=== PATIENT | female | born 1925 | race Caucasian/White ===

== ENCOUNTER 2017-05-28 08:58 | Inpatient (IN) | payer OTHER ==
[~2017-05-28] VITALS: Ht 157.5 cm; Wt 43.3 kg
[2017-05-28] VITALS (16 sets, daily range): BP systolic 111–158; BP diastolic 52–87
[2017-05-28] MEDS ORDERED: SODIUM CHLORIDE 0.9% 1,000 ML IV ONE (09:43)
[2017-05-28] MEDS ORDERED: FAMOTIDINE 20 MG/2 ML ONE (09:49)
[2017-05-28] MEDS ORDERED: ONDANSETRON 2MG/ML, 2ML ONE (09:49)
[2017-05-28] MEDS ORDERED: SODIUM CHLORIDE 0.9% 1,000ML IVBOLUS ONE (10:00)
[2017-05-28] MEDS ORDERED: ONDANSETRON 2MG/ML, 2ML IVPush ONE (10:00)
[2017-05-28] MEDS ORDERED: FAMOTIDINE 20 MG/2 ML IVP ONE (10:00)
[2017-05-28 11:33] LABS: ASPARTATE AMINO TRANSFERASE 16 U/L (15-37); BLOOD UREA NITROGEN 37 mg/dL (7-18)
[2017-05-28] MEDS ORDERED: ASPI-515 PO (11:39)
[2017-05-28] MEDS ORDERED: QUET25TA5 PO ×2 (11:39)
[2017-05-28] MEDS ORDERED: QUET50TA5 PO (11:39)
[2017-05-28] MEDS ORDERED: LABETALOL 5MG/ML, 20ML IVPush PRN (15:00)
[2017-05-28] MEDS ORDERED: PROMETHAZINE 25 MG/ML, 1ML IM PRN (15:00)
[2017-05-28] MEDS ORDERED: morphine SULFATE 10 MG/ML, 1ML IVPush PRN (15:00)
[2017-05-28] MEDS ORDERED: ONDANSETRON 2MG/ML, 2ML IVPush PRN (15:00)
[2017-05-28] MEDS ORDERED: GUAIFENESIN/DM 200-20MG, 10ML UDC PO PRN (15:00)
[2017-05-28] MEDS ORDERED: ONDANSETRON ODT 4 MG PO PRN (15:00)
[2017-05-28] MEDS ORDERED: POLYETHYLENE GLYCOL 17 GM PACKET PO PRN (15:00)
[2017-05-28] MEDS ORDERED: HYDROcodone/APAP 5/325 TABLET PO PRN (15:00)
[2017-05-28] MEDS ORDERED: IMMUNE GLOBULIN IV ONE (17:30)
[2017-05-28] MEDS ORDERED: PANTOPRAZOLE 80 MG in SODIUM CHLORIDE 0.9% 50 ML IV ONE (17:30)
[2017-05-28 18:04] LABS: FIBRINOGEN 279 mg/dL (200-340)
[2017-05-28] MEDS ORDERED: OMNIPAQUE 350 MG/ML, 100ML BOTTLE ONE (19:42)
[2017-05-28] MEDS: SODIUM CHLORIDE 0.9% 1,000 ML IV SCH (20:32)
[2017-05-29 00:17] VITALS: BP 145/83
[2017-05-29 00:38] VITALS: BP 145/93
[2017-05-29 01:29] VITALS: BP 160/85
[2017-05-29] MEDS: PANTOPRAZOLE 80 MG in SODIUM CHLORIDE 0.9% 100 ML IV SCH ×2 (03:14→14:02)
[2017-05-29] MEDS: CEFTRIAXONE PMX 1GM/50ML 50 ML IV SCH (03:15)
[2017-05-29 06:14] LABS: ASPARTATE AMINO TRANSFERASE 31 U/L (15-37); BLOOD UREA NITROGEN 22 mg/dL (7-18)
[2017-05-29 06:51] VITALS: BP 127/69
[2017-05-29] MEDS: DEXAMETHASONE 4 MG TABLET PO SCH (09:00)
[2017-05-29] MEDS: SENNA/DOCUSATE TABLET PO SCH (09:19)
[2017-05-29] MEDS: SODIUM CHLORIDE 0.9% 1,000 ML IV SCH (14:03)
[2017-05-29 14:57] VITALS: BP 139/70
[2017-05-29] MEDS ORDERED: GLUCAGON 1 MG IM PRN (18:30)
[2017-05-29] MEDS ORDERED: DEXTROSE 50%, 50ML SYRINGE IVPush PRN (18:30)
[2017-05-29] MEDS ORDERED: DEXTROSE 4 GM TAB.CHEW PO PRN (18:30)
[2017-05-29 19:25] VITALS: BP 139/72
[2017-05-30 00:31] VITALS: BP 165/83
[2017-05-30] MEDS: SODIUM CHLORIDE FLUSH 10ML SYR IVF SCH ×3 (01:01→21:12)
[2017-05-30] MEDS: SODIUM CHLORIDE 0.9% 1,000 ML IV SCH ×2 (01:01→12:53)
[2017-05-30] MEDS: PANTOPRAZOLE 80 MG in SODIUM CHLORIDE 0.9% 100 ML IV SCH ×2 (03:43→13:57)
[2017-05-30] MEDS: CEFTRIAXONE PMX 1GM/50ML 50 ML IV SCH (03:43)
[2017-05-30 05:22] LABS: BLOOD UREA NITROGEN 20 mg/dL (7-18)
[2017-05-30 05:27] LABS: ASPARTATE AMINO TRANSFERASE 20 U/L (15-37)
[2017-05-30 06:53] VITALS: BP 139/70
[2017-05-30] MEDS: DEXAMETHASONE 4 MG TABLET PO SCH (08:42)
[2017-05-30] MEDS: SENNA/DOCUSATE TABLET PO SCH (08:42)
[2017-05-30] MEDS: POTASSIUM CHLORIDE 20 MEQ PACKET PO SCH ×2 (08:42→17:38)
[2017-05-30 14:38] VITALS: BP 131/70
[2017-05-30 20:00] VITALS: BP 159/76
[2017-05-31 02:00] VITALS: BP 158/85
[2017-05-31] MEDS: CEFTRIAXONE PMX 1GM/50ML 50 ML IV SCH (02:49)
[2017-05-31 07:52] VITALS: BP 146/80
[2017-05-31] MEDS: SODIUM CHLORIDE FLUSH 10ML SYR IVF SCH ×2 (09:00→21:30)
[2017-05-31] MEDS: SENNA/DOCUSATE TABLET PO SCH (09:00)
[2017-05-31] MEDS: DEXAMETHASONE 4 MG TABLET PO SCH (09:00)
[2017-05-31] MEDS: OMEPRAZOLE 20 MG CAPSULE.DR PO SCH (09:20)
[2017-05-31 10:27] LABS: BLOOD UREA NITROGEN 23 mg/dL (7-18)
[2017-05-31 12:12] VITALS: BP 150/82
[2017-05-31] MEDS ORDERED: POTASSIUM CHLORIDE 20 MEQ TAB.ER.PRT PO ONE (19:00)
[2017-05-31 20:00] VITALS: BP 157/76
[2017-06-01 02:00] VITALS: BP 166/92
[2017-06-01] MEDS: CEFTRIAXONE PMX 1GM/50ML 50 ML IV SCH (02:22)
[2017-06-01 05:57] LABS: BLOOD UREA NITROGEN 25 mg/dL (7-18)
[2017-06-01 08:11] VITALS: BP 158/75
[2017-06-01] MEDS: SODIUM CHLORIDE FLUSH 10ML SYR IVF SCH (09:00)
[2017-06-01] MEDS: OMEPRAZOLE 20 MG CAPSULE.DR PO SCH (09:36)
[2017-06-01] MEDS: DEXAMETHASONE 4 MG TABLET PO SCH (09:36)
[2017-06-01] MEDS: SENNA/DOCUSATE TABLET PO SCH (09:37)
[2017-06-01] MEDS ORDERED: OMEP-110 PO (13:35)
[2017-06-01 14:02] VITALS: BP 136/77
== END 2017-06-01 14:00 | disposition hospice, home (50) | DRG 377 ==
LOC: ED 13:04 → EDIP 13:10 → 4WST 14:21
PROVIDERS: ADMIT Hospitalist; ATTEND Hospitalist
PROC: 30233R1 Transfusion of Nonautologous Platelets into Peripheral Vein, Percutaneous Approach (ICD-10-PCS; principal; 2017-05-28)
PROC: 30233N1 Transfusion of Nonautologous Red Blood Cells into Peripheral Vein, Percutaneous Approach (ICD-10-PCS; 2017-05-28)
PROC: 0T9B70Z Drainage of Bladder with Drainage Device, Via Natural or Artificial Opening (ICD-10-PCS; 2017-05-28)
PROC: 02HV33Z Insertion of Infusion Device into Superior Vena Cava, Percutaneous Approach (ICD-10-PCS; 2017-05-29)
PROC: B548ZZA Ultrasonography of Superior Vena Cava, Guidance (ICD-10-PCS; 2017-05-29)
DX: K92.2 Gastrointestinal hemorrhage, unspecified (principal); E43 Unspecified severe protein-calorie malnutrition; D62 Acute posthemorrhagic anemia; D69.3 Immune thrombocytopenic purpura; Z68.1 Body mass index [BMI] 19.9 or less, adult; J98.11 Atelectasis; E78.5 Hyperlipidemia, unspecified; R62.7 Adult failure to thrive; K57.30 Diverticulosis of large intestine without perforation or abscess without bleeding; Z96.641 Presence of right artificial hip joint; M19.90 Unspecified osteoarthritis, unspecified site; R73.9 Hyperglycemia, unspecified; B96.20 Unspecified Escherichia coli [E. coli] as the cause of diseases classified elsewhere; E87.6 Hypokalemia; F03.90 Unspecified dementia, unspecified severity, without behavioral disturbance, psychotic disturbance, mood disturbance, and anxiety; I10 Essential (primary) hypertension; Z66 Do not resuscitate; Z80.8 Family history of malignant neoplasm of other organs or systems; Z87.891 Personal history of nicotine dependence; Z90.49 Acquired absence of other specified parts of digestive tract; Z88.1 Allergy status to other antibiotic agents
CPT/HCPCS: 36415; 36569; 71010; 74177; 76700; 76937; 77001; 80048; 80053; 81001; 82040; 82140; 82607; 82746; 82962; 83605; 83615; 83690; 83735; 84100; 84439; 85014; 85018; 85025; 85045; 85384; 85610; 85730; 86677; 86704; 86706; 86708; 86803; 86850; 86900; 86923; 87040; 87077; 87086; 87186; 87340; 93005; 96361; 96374; 96375; J0696; J1459; J2405; Q9967; C1751; C9113; J7030; P9016; P9035; S0028